=== PATIENT | male | born 1960 | race Caucasian/White ===

== ENCOUNTER 2018-11-16 10:12 | Day surgery (SDC) | payer OTHER, SELFPAY ==
[2018-11-16 10:54] VITALS: BP 157/67; PULSE 73; RESP 16; TEMP 37.2; O2SAT 100; BMI 48.8
[2018-11-16] MEDS: Bupivacaine 0.25% 30 ML Vial (10:56)
[2018-11-16] MEDS: MethylPREDNISolone Acetate 80 MG/ML Vial (10:56)
[2018-11-16 11:31] LABS: Bedside Glucose 148 mg/dL (70-110)
--- NOTE | 2018-11-16 11:50 | RAD_ITS ---
PROCEDURE: Caudal block. DATE OF EXAMINATION: November 16, 2018. INDICATION: Male, 58 years old. Chronic low back pain. FLUOROSCOPY TIME (if supplied): (0:09) minutes/seconds. 2 coned down intraoperative views were obtained. Intraoperative imaging provided for caudal block. RAD/Fluor Guidance for Spine Inj IMPRESSION: Intraoperative imaging provided for caudal block. Electronically Signed: Lloyd De Leon MD at 10:16 EST Tel [phone], Service support ,
[2018-11-16 12:02] VITALS: BP 142/70; BP 156/67; PULSE 89; RESP 16; TEMP 36.3; O2SAT 99
[2018-11-16 12:05] VITALS: BP 151/2; BP 156/67; PULSE 83; RESP 16; O2SAT 99
[2018-11-16 12:10] VITALS: BP 144/64; BP 156/67; PULSE 82; RESP 16; O2SAT 98
[2018-11-16 12:16] VITALS: BP 130/59; BP 156/67; PULSE 80; RESP 16; TEMP 36.3; O2SAT 98
[2018-11-16 12:29] VITALS: BP 156/67
--- NOTE | 2018-11-16 12:39 | PCM.OPRPT ---
Problem List (1) Degeneration of intervertebral disc of lumbosacral region Status: Chronic (2) Radiculopathy of lumbosacral region Status: Chronic Report of Operation Date of Procedure: 11/16/18 Pre-Operative Diagnosis: Lumbosacral radiculopathy, lumbosacral degenerative disc disease Post-Operative Diagnosis: Lumbosacral radiculopathy, lumbosacral degenerative disc disease Surgery/Procedure Performed:: Diagnostic/therapeutic caudal epidural steroid injection Description of Surgical Findings:: PROCEDURE: Diagnostic/therapeutic caudal epidural steroid injection PREOPERATIVE DIAGNOSIS: Lumbosacral radiculopathy, lumbosacral degenerative disc disease POSTOPERATIVE DIAGNOSIS: Lumbosacral radiculopathy, lumbosacral degenerative disc disease ANESTHESIA: MAC COMPLICATIONS: None BLOOD LOSS: Minimal PROCEDURE IN DETAIL: History and physical today was reviewed. Risks and benefits of the procedure were explained. The patient understood, agreed to our procedure, and informed consent was obtained. IV inserted per routine protocol. The patient was taken to the operating room, placed in a prone position with a pillow positioned underneath the abdomen. The lower back and tailbone area was prepped and draped in a sterile fashion using iodine ?3 under fluoroscopy guidance on the lateral view the caudal space was identified the skin and subcutaneous tissue and size approximately 3 cc of 1% lidocaine using a 25-gauge regular needle under direct visualization fluoroscopy using the lateral approach using a 22-gauge 3-1/2 inch spinal needle the needle was advanced via the skin through the sacral hiatus, tip of the needle passed through the sacrococcygeal ligament advanced approximately S4 area after negative aspiration for blood or CSF a total of 3 cc of contrast were injected to confirm correct placement of the needle as well as cephalad spread the spread was followed to approximately L5 area after confirmation AP as well as lateral view repeated negative aspiration a total of 15 cc of preservative-free 0.125% Marcaine with 80 mg of Depo-Medrol was injected easily. The needles were then removed intact. The patient experienced no signs or symptoms intrathecal, intravascular injection. The patient experienced no paraesthesia. The procedure was completed without any apparent difficult, any complication. The patient appeared to tolerate well. ASSESSMENT AND PLAN: This is a 58-year-old male with lumbosacral radiculopathy, lumbosacral degenerative disc disease status post diagnostic/therapeutic caudal epidural steroid injection. The patient will continue his current medications. The patient will follow in approximately 2 weeks for possible repeat of the procedure if indicated.
--- OUTSIDE RECORDS SUMMARY | 2019-02-17 23:07 | XMS RPT_ITS ---
:1960 Author Organization OHIP Care Team Providers Name Role Phone Erwin Wisdom Attending Unavailable Erwin Wisdom Referring Unavailable Tourtomeka, Ceferino Primary Care Unavailable Erwin Wisdom Attending Unavailable Erwin Wisdom Referring Unavailable Tourlas, Ceferino Primary Care Unavailable Derek Hudson Attending Unavailable VorDerek otero Primary Care Unavailable Derek Hudson Admitting Unavailable Tourlas, Moises Attending Unavailable Tourlas, Moises Primary Care Unavailable Tourlas, Moises Attending Unavailable Tourlas, Moises Admitting Unavailable Tourlas, Moises Primary Care Unavailable Tourlas, Moises Attending Unavailable Tourlas, Moises Primary Care Unavailable Tourlas, Moises Admitting Unavailable Tourlas, Moises Attending Unavailable Tourlas, Moises Primary Care Unavailable Ry Hodge Attending Unavailable Tourlas, Moises Referring Unavailable Tourlas, Moises Primary Care Unavailable Ry Hodge R Admitting Unavailable Tourlas, Moises Attending Unavailable Tourlas, Moises Primary Care Unavailable Tourlas, Moises Admitting Unavailable Tourlas, Moises Admitting Unavailable Tourlas, Moises Attending Unavailable Tourlas, Moises Primary Care Unavailable Tourlas, Moises Admitting Unavailable Tourlas, Moises Attending Unavailable Tourlas, Moises Primary Care Unavailable Tourlas, Moises Admitting Unavailable Tourlas, Moises Attending Unavailable Tourlas, Moises Primary Care Unavailable Moises Mauriico Attending Unavailable Hang, Moises Primary Care Unavailable Edward Wisdom Admitting Unavailable Edward Wisdom Attending Unavailable Hang, Moises Primary Care Unavailable PROBLEMS PROBLEMS DATE TYPE CONDITION / CODE ATTENDING STATUS SOURCE 11/23/2018 Unknown M51.17 - Artis Active Salvatore Intervertebral disc [facility] radiculopathy, Repository lumbosacral region / M51.17(ICD-10) PROCEDURES PROCEDURES No Procedure Records FoundRESULTS RESULTS OPERATIVE REPORT Observed: 12/21/2018 Status: F Source: [place] 10:38 AM [facility] Medical Records Department [address] [place] [address] Operative Report 12/21/18 1037 MR#: [id number] Acct: [id number] Name: CHERRI BLACK Rep #: [id number] : 1960 58 From: Erwin Wisdom MD PCP: Moises Mauricio MD Status: [facility] Y Location: [facility] Problem List (1) Spondylosis of lumbosacral region without myelopathy or radiculopathy Status: Chronic (2) Degeneration of intervertebral disc of lumbosacral region Status: Chronic Report of Operation Date of Procedure: 12/21/18 Pre-Operative Diagnosis: Lumbosacral spondylosis, lumbosacral degenerative disc disease, lumbar facet arthropathy Post-Operative Diagnosis: Lumbosacral spondylosis, lumbosacral degenerative disc disease, lumbar facet arthropathy Surgery/Procedure Performed:: Right-sided lumbar facet steroid injection L3, L4, L5, S1 Description of Surgical Findings:: PROCEDURE: Right-sided lumbar facet steroid injection L3, L4, L5, S1 PREOPERATIVE DIAGNOSIS: Lumbosacral spondylosis, lumbosacral degenerative disc disease, and lumbar facet arthropathy POSTOPERATIVE DIAGNOSIS: Lumbosacral spondylosis, lumbosacral degenerative disc disease, and lumbar facet arthropathy ANESTHESIA: MAC COMPLICATIONS: None BLOOD LOSS: Minimal PROCEDURE IN DETAIL: History and physical today was reviewed. Risks and benefits of the procedure were explained. The patient understood, agreed to our procedure, and informed consent was obtained. IV inserted per routine protocol. The patient was taken to the operating room, placed in a prone position with a pillow positioned underneath the abdomen. The right side of his lower back was prepped and draped in a sterile fashion using iodine x3. Under fluoroscopy guidance, on AP view, L3 through S1 vertebral bodies were visualized. Skin and subcutaneous tissues were anesthetized with approximately 5 mL of 1% lidocaine using a 25-gauge regular needle. Under direct visualization with fluoroscopy at approximately 25-degree angle, starting on the right L3, ending on the right S1, passing through the L4-L5 using a 22-gauge 5 inch spinal needle, the needle was advanced via the skin. The tip of the needle was maneuvered and directed towards the superior and medial gutter of the transverse process at the vicinity of the medial branch. Once the tip of the needle was in contact with the bone, the needle pulled approximately 2 mm off the bone. After negative aspiration of blood with CSF and confirmation of AP as well as oblique view, a total of 8 mL of preservative-free 0.25% Marcaine with 80 mg of Depo-Medrol was injection in divided doses between those 4 levels. The needles were then removed intact. The patient experienced no signs or symptoms intrathecal, intravascular injection. The patient experienced no paraesthesia. The procedure was completed without any apparent difficult, any complication. The patient appeared to tolerate well. ASSESSMENT AND PLAN: This is a 58-year-old Male with lumbosacral spondylosis, lumbosacral degenerative disc disease, and lumbar facet arthropathy, status post right-sided lumbar facet steroid injection L3 through S1. The patient will continue his current medications. The patient will follow in approximately 2 weeks for reevaluation. 12/21/18 1038 <Electronically signed by Erwin Wisdom MD> Date Erwin Wisdom MD CC: Erwin Wisdom; Moises Mauricio MD Signed BEDSIDE GLUCOSE Collected: 12/21/2018 Status: F Source: [place] 7:32 AM [facility] TYPE CODE TESTS RESULT OUT OF REFERENCE UNITS RANGE LAB L501.080 70-110 mg/dL High BEDSIDE GLU 170 Result Comment: MANAGEMENT OF PATIENT CARE PER NURSING PROTOCOL Performed By: #### L501.080 #### [facility] Point of Care [address] [place] [address] LUMBAR SPINE 2 OR 3 Observed: 12/21/2018 Status: F Source: [place] VIEWS 1:11 AM [facility] Imaging Services [address] [place] [address] Lumbar Spine 2 or 3 Views MR#: [id number] Acct: [id number] Name: CHERRI BLACK Rep #: [id number] : 1960 M 58 From: Ej Correa PCP: Moises Mauricio MD Status: [facility] Study: Lumbar Spine 2 or 3 Views Date of Exam: 12/21/18 Exam# [id number] Ordering Dr: Erwin Wisdom MD STUDY: X-RAY - LUMBAR SPINE REASON FOR EXAM: Male, 58 years old. BLOCK FACET L3-S1 RIGHT. TECHNIQUE: 2 view(s) of the lumbar spine were obtained. COMPARISON: None FINDINGS: Fluoroscopic views were obtained for intraoperative localization. Please refer to intraoperative report. RAD/Lumbar Spine 2 or 3 Views IMPRESSION: Fluoroscopic views were obtained for intraoperative localization. Please refer to intraoperative report. Electronically Signed: Ej Correa MD at 11:11 EST Tel , Service support , CC: Erwin Wisdom; Moises Mauricio MD Inside Barrel Lathe Operator: Signed OPERATIVE REPORT Observed: 11/16/2018 Status: F Source: [place] 12:40 PM [facility] Medical Records Department [address] [place] [address] Operative Report 11/16/18 1239 MR#: [id number] Acct: [id number] Name: CHERRI BLACK Rep #: [id number] : 1960 58 From: Erwin Wisdom MD PCP: Moises Mauricio MD Status: [facility] Y Location: [facility] Problem List (1) Degeneration of intervertebral disc of lumbosacral region Status: Chronic (2) Radiculopathy of lumbosacral region Status: Chronic Report of Operation Date of Procedure: 11/16/18 Pre-Operative Diagnosis: Lumbosacral radiculopathy, lumbosacral degenerative disc disease Post-Operative Diagnosis: Lumbosacral radiculopathy, lumbosacral degenerative disc disease Surgery/Procedure Performed:: Diagnostic/therapeutic caudal epidural steroid injection Description of Surgical Findings:: PROCEDURE: Diagnostic/therapeutic caudal epidural steroid injection PREOPERATIVE DIAGNOSIS: Lumbosacral radiculopathy, lumbosacral degenerative disc disease POSTOPERATIVE DIAGNOSIS: Lumbosacral radiculopathy, lumbosacral degenerative disc disease ANESTHESIA: MAC COMPLICATIONS: None BLOOD LOSS: Minimal PROCEDURE IN DETAIL: History and physical today was reviewed. Risks and benefits of the procedure were explained. The patient understood, agreed to our procedure, and informed consent was obtained. IV inserted per routine protocol. The patient was taken to the operating room, placed in a prone position with a pillow positioned underneath the abdomen. The lower back and tailbone area was prepped and draped in a sterile fashion using iodine 3 under fluoroscopy guidance on the lateral view the caudal space was identified the skin and subcutaneous tissue and size approximately 3 cc of 1% lidocaine using a 25-gauge regular needle under direct visualization fluoroscopy using the lateral approach using a 22-gauge 3-1/2 inch spinal needle the needle was advanced via the skin through the sacral hiatus, tip of the needle passed through the sacrococcygeal ligament advanced approximately S4 area after negative aspiration for blood or CSF a total of 3 cc of contrast were injected to confirm correct placement of the needle as well as cephalad spread the spread was followed to approximately L5 area after confirmation AP as well as lateral view repeated negative aspiration a total of 15 cc of preservative-free 0.125% Marcaine with 80 mg of Depo-Medrol was injected easily. The needles were then removed intact. The patient experienced no signs or symptoms intrathecal, intravascular injection. The patient experienced no paraesthesia. The procedure was completed without any apparent difficult, any complication. The patient appeared to tolerate well. ASSESSMENT AND PLAN: This is a 58-year-old male with lumbosacral radiculopathy, lumbosacral degenerative disc disease status post diagnostic/therapeutic caudal epidural steroid injection. The patient will continue his current medications. The patient will follow in approximately 2 weeks for possible repeat of the procedure if indicated. 11/16/18 1240 <Electronically signed by Erwin Wisdom MD> Date Erwin Wisdom MD CC: Erwin Wisdom; Moises Mauricio MD Signed BEDSIDE GLUCOSE Collected: 11/16/2018 Status: F Source: [place] 11:02 AM [facility] TYPE CODE TESTS RESULT OUT OF REFERENCE UNITS RANGE LAB L501.080 70-110 mg/dL High BEDSIDE GLU 148 Result Comment: MANAGEMENT OF PATIENT CARE PER NURSING PROTOCOL Performed By: #### L501.080 #### [facility] Point of Care [address] [place] [address] FLUOR GUIDANCE FOR Observed: 11/16/2018 Status: F Source: [place] SPINE INJ 3:48 AM [facility] Imaging Services [address] [place] [address] Fluor Guidance for Spine Inj MR#: [id number] Acct: [id number] Name: CHERRI BLACK Paramjit Rep #: [id number] : 1960 M 58 From: Lloyd De Leon MD PCP: Moises Mauricio MD Status: [facility] Study: Fluor Guidance for Spine Inj Date of Exam: 11/16/18 Exam# [id number] Ordering Dr: Erwin Wisdom MD PROCEDURE: Caudal block. DATE OF EXAMINATION: November 16, 2018. INDICATION: Male, 58 years old. Chronic low back pain. FLUOROSCOPY TIME (if supplied): (0:09) minutes/seconds. 2 coned down intraoperative views were obtained. Intraoperative imaging provided for caudal block. RAD/Fluor Guidance for Spine Inj IMPRESSION: Intraoperative imaging provided for caudal block. Electronically Signed: Lloyd De Leon MD at 10:16 EST Tel [phone], Service support , CC: Erwin Wisdom; Moises Mauricio MD Inside Barrel Lathe Operator: Signed XR SPINE LUMBOSACRAL Observed: 11/03/2018 Status: F Source: [place] COMPLETE W/ BENDING 4:07 PM [facility] REPOSITORY Exam Date/Time: 11/03/2018 16:20 EST Reason for Exam: low back/hip pain Report STUDY: XR Spine Lumbosacral Complete w/ Bending; 11/03/2018 4:20 pm INDICATION: low back/hip pain. COMPARISON: 10/27/2012 ACCESSION NUMBER(S): [id number] ORDERING CLINICIAN: Edward Wisdom FINDINGS: 7 views of the lumbar spine including AP, lateral, lateral cone-down, lateral flexion and extension and bilateral oblique views were obtained. There is no acute fracture identified. The vertebral bodies are well aligned without evidence of subluxation. The disc spaces are well preserved throughout without significant degenerative changes. [id number] facet degenerative changes are seen throughout the lumbar spine. There is no evidence of pars interarticularis defect. No abnormal motion is seen on the flexion and extension views. IMPRESSION: 1. No evidence of acute fracture. FINAL REPORT Dictated: 11/05/2018 11:26 am Alejandro Bustillos MD Signed (Electronic Signature): 11/05/2018 11:26 am Signed by: Alejandro Bustillos MD Technologist: SUZAN TOMLIN Collected: 10/12/2018 Status: F Source: [place] 12:03 PM [facility] REPOSITORY TYPE CODE TESTS RESULT OUT OF RANGE REFERENCE UNITS LAB 31096026(L 10-20 mEq/L OINC) AGAP Normal 11 LAB 21121388(L 70-99 mg/dL OINC) High Glucose Lvl 152 LAB 19419275(L 6-23 mg/dL OINC) BUN Normal 21 LAB 7206695(LO 0.5-1.3 mg/dL INC) Normal Creatinine 0.9 LAB 93586163(L 5.4-30.0 ratio OINC) Normal BUN/Creat Ratio 23.3 LAB 15666621(L 8.6-10.3 mg/dL OINC) Calcium Normal Lvl 9.4 LAB 87176370(L 136-145 mEq/L OINC) Sodium Normal Lvl 139 LAB 65080577(L 3.5-5.3 mEq/L OINC) Normal Potassium Lvl 3.9 LAB 95943246(L 98-107 mEq/L OINC) Chloride Normal 103 LAB 29630850(L 21.0-32.0 mEq/L OINC) CO2 Normal 29.0 Performed By: #### [id number] #### [facility] [employer] [address] [place] [address] EGFR Collected: 10/12/2018 Status: F Source: [place] 12:03 PM [facility] REPOS[facility] Order Comment: Order added by Discern Expert. TYPE CODE TESTS RESULT OUT OF RANGE REFERENCE UNITS LAB 15574393(LO mL/min/1.73 INC) m2 Normal eGFR >60 LAB 81574730(LO mL/min/1.73 INC) m2 Normal eGFR AA >60 Performed By: #### [id number] #### [facility]ELY [employer] [address] [place], [place] [id number] CMP Collected: 08/27/2018 Status: F Source: [place] 2:26 PM [facility] REPOSITORY TYPE CODE TESTS RESULT OUT OF RANGE REFERENCE UNITS LAB 90643803(L 70-99 mg/dL OINC) High Glucose Lvl 134 LAB 78656063(L 7-18 mg/dL OINC) High BUN 21 LAB 0699733(LO 0.6-1.3 mg/dL INC) Normal Creatinine 0.9 LAB 49409491(L 8.4-10.2 mg/dL OINC) Calcium Normal Lvl 9.6 LAB 55166378(L 136-145 mEq/L OINC) Sodium Normal Lvl 142 LAB 86943855(L 3.5-5.1 mEq/L OINC) Normal Potassium Lvl 4.0 LAB 92819417(L 98-107 mEq/L OINC) Chloride Normal 102 LAB 14597452(L 24.0-30.0 mEq/L OINC) CO2 Normal 28.0 LAB 76178887(L 42-121 Int._Unit/ OINC) L Alk Phos Normal 60 LAB 72070938(L 0.2-1.0 mg/dL OINC) Bili Normal Total 0.6 LAB 45068060(L 3.2-5.0 G/DL OINC) Albumin Normal Lvl 4.3 LAB 90886533(L 6.4-8.3 G/DL OINC) Total Normal Protein 7.9 LAB 39871412(L 10-40 Int._Unit/ OINC) L ALT Normal 30 LAB 23273560(L 10-42 Int._Unit/ OINC) L AST Normal 25 LAB 51334512(L 5.4-30.0 ratio OINC) Normal BUN/Creat Ratio 23.3 LAB 89595263(L 2.0-4.0 G/DL OINC) Globulin Normal 3.6 LAB 16256604(L 1.1-1.9 ratio OINC) A/G Normal Ratio 1.2 Performed By: #### [id number] #### [facility]ARELY [employer] [facility] [place] [address] EGFR Collected: 08/27/2018 Status: F Source: [place] 2:26 PM [facility] REPOS[facility] Order Comment: Order added by Discern Expert. TYPE CODE TESTS RESULT OUT OF RANGE REFERENCE UNITS LAB 31048194(LO mL/min/1.73 INC) m2 Normal eGFR >60 LAB 01298772(LO mL/min/1.73 INC) m2 Normal eGFR AA >60 Performed By: #### [id number] #### [facility]ELY [employer] [address] [id number] CBC W/ AUTO DIFF Collected: 08/27/2018 Status: F Source: [place] 2:26 PM [facility] REPOSITORY TYPE CODE TESTS RESULT OUT OF RANGE REFERENCE UNITS LAB 17951526(L 3.6-11.0 E3/mcL OINC) Normal WBC 8.4 LAB 22113955(L 3.90-6.10 E6/mcL OINC) Normal RBC 4.80 LAB 60573218(L 13.5-18.0 G/DL OINC) Normal Hgb 13.8 LAB 43079732(L 42.0-52.0 % OINC) Low Hct 41.4 LAB 27743275(L 11.5-14.5 % OINC) High RDW 14.7 LAB 85225464(L 27.0-31.0 pg OINC) Normal MCH 28.7 LAB 76306797(L 33.0-37.0 G/DL OINC) Normal MCHC 33.4 LAB 23185297(L 78.0-100.0 fL OINC) Normal MCV 86.1 LAB 60973262(L 7.4-11.0 fL OINC) Normal MPV 8.4 LAB 02100394(L 130-400 E3/mcL OINC) Normal Platelet 296 Performed By: #### [id number] #### Y[facility]ELY [employer]rest[employer] [address] [place] [address] AUTO DIFF Collected: 08/27/2018 Status: F Source: [place] 2:26 PM [facility] REPOSIT[facility] Order Comment: Order Added by Discern Expert. TYPE CODE TESTS RESULT OUT OF RANGE REFERENCE UNITS LAB 02862642(L 37.0-75.0 % OINC) Normal Neutro Auto 66.1 LAB 23904926(L 20.0-55.0 % OINC) Normal Lymph Auto 23.5 LAB 28175309(L 0.0-10.0 % OINC) Normal Hocking Auto 7.9 LAB 43654197(L 0.0-11.0 % OINC) Normal Eos Auto 1.4 LAB 72126902(L 0.0-2.0 % OINC) Normal Basophil Auto 1.1 LAB 56081732(L 1.4-6.5 E3/mcL OINC) Normal Neutro 5.5 Absolute LAB 72700446(L 1.2-3.4 E3/mcL OINC) Normal Lymph Absolute 2.0 LAB 11014406(L 0.0-0.7 E3/mcL OINC) Normal [place]ocking Absolute 0.7 LAB 19733400(L 0.0-0.7 E3/mcL OINC) Normal Eos Absolute 0.1 LAB 04028599(L 0.0-0.2 E3/mcL OINC) Normal Basophil 0.1 Absolute Performed By: #### [id number] #### [facility] [employer] [address] [place] [address] HGBA1C Collected: 08/27/2018 Status: F Source: [place] 2:26 PM [facility] REPOSITORY TYPE CODE TESTS RESULT OUT OF RANGE REFERENCE UNITS LAB 000037470( 4.0-6.3 % LOINC) Normal Hemoglobin A1c 6.3 Performed By: #### [id number] #### YARELY Chemistry Manual Subsection [facility] [place] [address] U DRUG SCREEN Collected: 02/17/2018 Status: F Source: [place] 11:50 AM [facility] REPOSITORY TYPE CODE TESTS RESULT OUT OF RANGE REFERENCE UNITS LAB 36679871(LO ng/mL INC) Normal U Negative Amph Scr Result Comment: Results for medical use only. Confirmation of positive results will be done when requested. Specimens are kept for one week. LAB 72627513(LOINC) ng/mL U Normal Gege Scr Negative LAB 08793303(LOINC) ng/mL U Normal Benzodia Scr Negative LAB 03105021(LOINC) ng/mL U Normal Cannab Scr Negative LAB 47213476(LOINC) ng/mL U Normal Cocaine Scr Negative LAB 21098872(LOINC) ng/mL U Normal Opiate Scr Positive >300 LAB 70416318(LOINC) ng/mL U Normal PCP Scr Negative Performed By: #### [id number] #### [facility] [employer] [address] [place], [place] [address] UA COMPLETE Collected: 02/17/2018 Status: F Source: [place] 11:50 AM [facility] REPOSITORY TYPE CODE TESTS RESULT OUT OF RANGE REFERENCE UNITS LAB 13660880( Yellow LOINC) Normal UA Color Yellow LAB 29021232( Clear LOINC) UA Clarity Abnormal SltCloudy LAB 43517470( Negative LOINC) Normal UA Glucose Negative LAB 23212864( Negative LOINC) Normal UA Bili Negative LAB 34242127( Negative LOINC) Normal UA Ketones Negative LAB 51794637( 1.003-1.030 LOINC) Normal UA Spec Grav 1.021 LAB 79942217( 4.6-8.0 LOINC) Normal UA pH 7.0 LAB 58610169( Negative LOINC) Normal UA Protein Negative LAB 05135755( mg/dL LOINC) Normal UA Urobilinogen Negative LAB 47669150( Negative LOINC) Normal UA Nitrite Negative LAB 73032425( Negative LOINC) Normal UA Blood Negative LAB 41276166( Negative LOINC) Normal UA Leuk Est Negative LAB 80595364( 0-3 /HPF LOINC) Normal UA RBC 0-3 LAB 31050225( 0-5 /HPF LOINC) Normal UA WBC 0-5 LAB 77784867( Trace /LPF LOINC) UA Mucous Abnormal Trace LAB CD:521453 <=19 mg/dL 3971(LOIN High C) UA Ascorbic 20 Acid Performed By: #### [id number] #### YARELY Urinalysis Automated Subsection [address] [place] [address] PSA SCREEN Collected: 02/17/2018 Status: F Source: [place] 11:50 AM [facility] REPOSITORY TYPE CODE TESTS RESULT OUT OF RANGE REFERENCE UNITS LAB 33399486(LO ng/mL INC) Normal PSA 0.19 Result Comment: AGE-SPECIFIC REFERENCE RANGES FOR SERUM PSA REFERENCE RANGE NG/ML AGE ASIANS BLACKS WHITE 40-49 0- 2 0-2 0-2.5 50-59 0- 3 0-4 0-3.5 60-69 0- 4 0-4.5 0-4.5 70-79 0- 5 0-5.5 0-6.5 PSA INCREASES WITH AGE, RACE, AND EJACULATION WITHIN 48 HRS. [facility] VOL24,NO.2, , PG.339 Performed By: #### [id number] #### Y[facility]ELY [employer] [address] [place] [address] TSH Collected: 02/17/2018 Status: F Source: [place] 11:50 AM [facility] REPOSITORY TYPE CODE TESTS RESULT OUT OF RANGE REFERENCE UNITS LAB 65886020(LO 0.30-5.60 mIU/m INC) Normal TSH 0.94 Performed By: #### [id number] #### Y[facility]ELY [employer] [address] [id number] CMP Collected: 02/17/2018 Status: F Source: [place] 11:50 AM [facility] REPOSITORY TYPE CODE TESTS RESULT OUT OF RANGE REFERENCE UNITS LAB 81443939(L 70-99 mg/dL OINC) High Glucose Lvl 116 LAB 55300930(L 8.4-10.2 mg/dL OINC) Calcium Normal Lvl 9.4 LAB 26737534(L 136-145 mEq/L OINC) Sodium Normal Lvl 140 LAB 34200128(L 3.5-5.1 mEq/L OINC) Normal Potassium Lvl 4.3 LAB 28130429(L 98-107 mEq/L OINC) Chloride Normal 101 LAB 14097945(L 24.0-30.0 mEq/L OINC) CO2 Normal 29.5 LAB 26432091(L 7-18 mg/dL OINC) High BUN 25 LAB 6442922(LO 0.6-1.3 mg/dL INC) Normal Creatinine 0.9 LAB 98125622(L 42-121 Int._Unit/ OINC) L Alk Phos Normal 52 LAB 79967330(L 0.2-1.0 mg/dL OINC) Bili Normal Total 0.6 LAB 94370466(L 3.2-5.0 G/DL OINC) Albumin Normal Lvl 4.3 LAB 68593859(L 6.4-8.3 G/DL OINC) Total Normal Protein 7.9 LAB 88593850(L 10-40 Int._Unit/ OINC) L ALT Normal 39 LAB 81263135(L 10-42 Int._Unit/ OINC) L AST Normal 27 LAB 84153448(L 5.4-30.0 ratio OINC) Normal BUN/Creat Ratio 27.8 LAB 07953874(L 2.0-4.0 G/DL OINC) Globulin Normal 3.6 LAB 14579400(L 1.1-1.9 ratio OINC) A/G Normal Ratio 1.2 Performed By: #### [id number] #### [facility] [employer] [place] [address] EGFR Collected: 02/17/2018 Status: F Source: [place] 11:50 AM [facility] REPOSITORY Order Comment: Order added by Discern Expert. TYPE CODE TESTS RESULT OUT OF RANGE REFERENCE UNITS LAB 38691528(LO mL/min/1.73 INC) m2 Normal eGFR >60 LAB 19557252(LO mL/min/1.73 INC) m2 Normal eGFR AA >60 Performed By: #### [id number] #### Y[facility]ELY [employer] [address] [id number] LIPID PROFILE Collected: 02/17/2018 Status: F Source: [place] 11:50 AM [facility] REPOSITORY TYPE CODE TESTS RESULT OUT OF RANGE REFERENCE UNITS LAB 14001943(LO 50-200 mg/dL INC) High Chol 223 Result Comment: TOTAL CHOLEESTEROL: <200 NORMAL 200 - 239 BORDERLINE HIGH >240 HIGH LAB 68956345(LOINC) >=41 mg/dL Low HDL 37 LAB 45341996(LOINC) 0-130 mg/dL Normal LDL 112 Result Comment: <100 OPTIMAL 100-129 NEAR / ABOVE OPTIMAL 130-159 BORDERLINE HIGH 160-189 HIGH >190 VERY HIGH CALC LDL NOT VALID WHEN TRIGLYCERIDE IS >400 MG/DL LAB 52199702(LOINC) 35-150 mg/dL High Trig 370 Result Comment: <150 NORMAL 150-199 BORDERLINE HIGH 200-499 HIGH >500 VERY HIGH LAB 40408268(LOINC) Normal VLDL 74 Performed By: #### [id number] #### Y[facility]ELY [employer] [address] [place] [address] HGBA1C Collected: 02/17/2018 Status: F Source: [place] 11:50 AM [facility] REPOSITORY TYPE CODE TESTS RESULT OUT OF RANGE REFERENCE UNITS LAB 528841388( 4.0-6.3 % LOINC) Normal Hemoglobin A1c 6.1 Performed By: #### [id number] #### YARELY Chemistry Manual Subsection [facility] [place] [address] Observed: 02/17/2018 Status: F Source: [place] C URINE 11:50 AM [facility] REPOSITORY Final Report: Rare Normal skin lizbeth isolated Performed By: #### [id number] #### YARELY Microbiology Subsection [address] [place] [address] ALLERGIES ALLERGIES DATE TYPE / CODE NAME / CODE REACTION SEVERITY SOURCE 12/21/2018 Drug No Known Unknown Salvatore Allergy/416 Allergies/Q298542 Community 943114(SNOM 388(RXNORM) [facility] ED CT) Repository Drug/390187 No Known [facility] 003(SNOMED Allergies [facility] CT) System Repository Drug/319440 Vu he called in to [facility] 003(SNOMED state in [facility] CT) uncertain terms System that he did not Repository like it and take it off his med list. Drug/011300 No Known [facility] 003(SNOMED Medication [facility] CT) Allergies System Repository ENCOUNTERS ENCOUNTERS ADMIT/DISCHARGE ACCOUNT NUMBER ADMITTING ENCOUNTER LOCATION SOURCE CLASS 12/21/2018/ [id number] Ambulatory Salvatore [place] [facility] ding:SDCRoom Repository : [id number] 11/16/2018/ [id number] Ambulatory Salvatore [place] 018 [facility] ding:SDCRoom Repository : AC16 11/03/2018/ [id number] Edward Wisdom Ambulatory Rastafarian Rastafarian 018 [facility] ding:[facility] [employer] Repository 11/03/2018 [id number] Ambulatory [address] [place] [address] Repository 10/15/2018/ [id number] Ambulatory [address] ding:[employer] System rac Repository 10/12/2018/ [id number] [facility], Ambulatory [facility] 018 [facility] ding: CUPS System Repository 10/12/2018 [id number] Ambulatory 9863 [facility] Repository 09/02/2018/ [id number] [facility], Ambulatory [facility] 018 [facility] ding:[facility] [employer] Repository 09/02/2018 [id number] Ambulatory [address] [place] [address] Repository 08/27/2018/ [id number] [facility], Ambulatory Rastafarian Rastafarian 018 [facility] ding: CUPS System Repository 08/27/2018/ [id number] [place] [address] [place] [address] ding:[employer] System racRoom: Repository Room 2 08/27/2018 [id number] Ambulatory 9863 [facility] Repository 05/29/2018 [id number] Ambulatory [address] [place] [address] Repository 05/20/2018/ [id number] Ambulatory [address] ding:[employer] System racRoom: Repository Room 1 05/14/2018 [id number] Ry Hodge [facility] ding:[facility] Health ACM System Repository 03/30/2018/ [id number] [address] ding:AshFamP System rac Repository 02/17/2018/ [id number] [facility], [address] ding: Health BANEY System Repository 02/17/2018/ [id number] [place], [address] ding:[employer] System racRoom: Repository Room 2 12/29/2017/ [id number] Derek Hudson [address] ding:AshFamP System racRoom: Repository Room 1 PAYERS PAYERS ENCOUNTER GUARANTOR PAYER SUBSCRIBER SOURCE 12/21/2018 CHERRI R Primary CHERRI R Salvatore [id number] CR [facility] [address] [id number] [id number]: [phone]) MEDICAREPolicy Repository [phone] () Number: [id number] Date: [place], [place] [address]HX: 12/21/2018 Secondary NOT GIVENUNK Salvatore Insurance:SELF PAY [facility] Number: Effective Repository Date:2018-12-14 11/16/2018 CHERRI R Primary CHERRI R Salvatore [id number] CR Insurance:[facility]ALTH PLAN [facility]: [address] [id number] [address]Itp: [phone] SUSSEXPolicy Number: Repository [phone] () [id number] Date: [place], [place] [address]JK: 11/16/2018 Secondary NOT GIVENUNK Salvatore Insurance:SELF PAY [facility] Number: Effective Repository Date:2018-11-09 11/03/2018 CHERRI Primary Insurance:[facility]: Health Plan [facility]: [facility] SecureCare Medicare [id number] Repository [address] Number: [place] [id number]: [id number] [id number]: Date:Plan Name:[facility] (HP) (HP) 10/12/2018 [facility]: Insurance:MedicarePol HARLEYDOB: [facility] icy Number: [id number] Repository [facility] [id number] [address] [place] [address] Date:Plan Name:[address] [id number]: [id number]: (HP) (HP) 09/02/2018 [facility]: Insurance:MedicarePol HARLEYDOB: [facility] icy Number: [id number] Repository [facility] [address] [id number] [address] [place] [address] Date:Plan Name:[address] [id number]: [id number]: (HP) (HP) 08/27/2018 [facility]: Insurance:[address] [place] [address]: [facility] HEALTH PLAN [facility] [id number] [address] Number: [address] [id number]: Date:2018-05-20 [id number]: [id number] (HP) Name:CD:[id number].O. ()Tel: (000) [address], [place] [address] (WP) [phone]: 05/20/2018 CHERRI RAY Primary CHERRI RAY Rastafarian HARLEYDOB: Insurance:[address] THE HARLEYDOB: [facility]AN [facility] [id number] Number: [facility] [place] [id number]: Date:2018-02-17 - [id number]: 1612-01-36Gvli (HP) Name:CD:[id number].O. ()Tel: (000) [address], [place] [address] (WP) [phone]: 05/14/2018 CHERRI RAY Primary CHERRI RAY Rastafarian HARLEYDOB: Insurance:MEDICARE HARLEYDOB: [facility] [id number] Number: Effective [address] [place] [address] Date:2018-03-24 - [place] [id number]: [id number] [id number]: Name:CD:[id number] () MAIN STREETCLAIMS: (HP)Tel: (000) [facility] 000-0000 () ESTRELLA Krishnamurthy [address]WS: 03/30/2018 CHERRI RAY Primary CHERRI RAY Rastafarian HARLEYDOB: Insurance:1500 [facility]: [facility] [id number] Number: [place] [id number]: Date:2017-12-29 - [id number]: [id number] (HP) Name:CD:[id number].O. ()Tel: (000) [address], [place] [address] (WP) [phone]: 02/17/2018 CHERRI RAY Primary CHERRI RAY Rastafarian HARLEYDOB: Insurance:MEDICARE [facility]: [facility] [id number] Number: Effective [address] [place] [address] Date:2018-02-[address] [place] [id number]: [id number] [id number]: Name:CD:[id number] () ROBIN CABRERAVeterans Affairs Medical Centernathanael, ()Tel: (000) [place] [address]LW: (WP) [phone] 02/17/2018 CHERRI RAY Primary CHERRI RAY Rastafarian HARLEYDOB: Insurance:1500 [facility]: [facility] [id number] Number: [place] [id number]: Date:2018-02-11 [id number]: [id number] (HP) Name:CD:[id number].OAlexei ()Tel: (000) [address] [place] [address] (WP) [phone]: 12/29/2017 CHERRI RAY Primary CHERRI RAY Rastafarian HARLEYDOB: Insurance:1500 [facility] [id number] Number: [place] [id number]: Date:2017-12-29 - [id number]: [id number] () Name:CD:[id number].O. (HP)Tel: (398) [address], [place] [address] (UD) [phone]:
== END 2018-11-16 12:29 | disposition home or self-care (01) ==
LOC: SDC 10:14 → AC 10:40
PROVIDERS: Family Provider Family Medicine; PCP Family Medicine; Referring Provider Anesthesiology Pain Medicine; Visit Provider Anesthesiology Pain Medicine
PROC: 3E0S3BZ Introduction of Anesthetic Agent into Epidural Space, Percutaneous Approach (ICD-10-PCS; CPT 62282; principal; 2018-11-16 11:45)
DX: M51.17 Intervertebral disc disorders with radiculopathy, lumbosacral region (principal); N40.0 Benign prostatic hyperplasia without lower urinary tract symptoms; E11.9 Type 2 diabetes mellitus without complications; G47.33 Obstructive sleep apnea (adult) (pediatric); I10 Essential (primary) hypertension; K21.9 Gastro-esophageal reflux disease without esophagitis; E78.00 Pure hypercholesterolemia, unspecified; Z87.442 Personal history of urinary calculi; Z87.891 Personal history of nicotine dependence; Z79.84 Long term (current) use of oral hypoglycemic drugs; Z79.82 Long term (current) use of aspirin; Z79.891 Long term (current) use of opiate analgesic; Z79.899 Other long term (current) drug therapy
CPT/HCPCS: 01992; 62323; 64520; 64483; 77003; 82962; J7120; J3490

== ENCOUNTER 2018-12-21 07:00 | Day surgery (SDC) | payer MEDICARE, SELFPAY ==
[2018-12-21 07:25] VITALS: BP 142/84; PULSE 84; RESP 16; TEMP 36.8; O2SAT 98; BMI 49.4
[2018-12-21 07:51] LABS: Bedside Glucose 170 mg/dL (70-110)
--- NOTE | 2018-12-21 08:20 | RAD_ITS ---
STUDY: X-RAY - LUMBAR SPINE REASON FOR EXAM: Male, 58 years old. BLOCK FACET L3-S1 RIGHT. TECHNIQUE: 2 view(s) of the lumbar spine were obtained. COMPARISON: None FINDINGS: Fluoroscopic views were obtained for intraoperative localization. Please refer to intraoperative report. RAD/Lumbar Spine 2 or 3 Views IMPRESSION: Fluoroscopic views were obtained for intraoperative localization. Please refer to intraoperative report. Electronically Signed: Ej Correa MD at 11:11 EST Tel , Service support ,
[2018-12-21] MEDS: Bupivacaine 0.25% 30 ML Vial (08:46)
[2018-12-21] MEDS: MethylPREDNISolone Acetate 80 MG/ML Vial (08:46)
[2018-12-21 08:55] VITALS: BP 131/86; BP 142/84; PULSE 70; RESP 18; TEMP 36.5; O2SAT 97
[2018-12-21 09:00] VITALS: BP 138/89; BP 142/84; PULSE 74; RESP 18; O2SAT 96
[2018-12-21 09:05] VITALS: BP 128/80; BP 142/84; PULSE 73; RESP 18; O2SAT 98
[2018-12-21 09:10] VITALS: BP 137/71; BP 142/84; PULSE 72; RESP 18; TEMP 36.9; O2SAT 97
[2018-12-21 09:21] VITALS: BP 142/84
--- NOTE | 2018-12-21 10:38 | OP.PCM_ITS ---
Problem List (1) Spondylosis of lumbosacral region without myelopathy or radiculopathy Status: Chronic (2) Degeneration of intervertebral disc of lumbosacral region Status: Chronic Report of Operation Date of Procedure: 12/21/18 Pre-Operative Diagnosis: Lumbosacral spondylosis, lumbosacral degenerative disc disease, lumbar facet arthropathy Post-Operative Diagnosis: Lumbosacral spondylosis, lumbosacral degenerative disc disease, lumbar facet arthropathy Surgery/Procedure Performed:: Right-sided lumbar facet steroid injection L3, L4, L5, S1 Description of Surgical Findings:: PROCEDURE: Right-sided lumbar facet steroid injection L3, L4, L5, S1 PREOPERATIVE DIAGNOSIS: Lumbosacral spondylosis, lumbosacral degenerative disc disease, and lumbar facet arthropathy POSTOPERATIVE DIAGNOSIS: Lumbosacral spondylosis, lumbosacral degenerative disc disease, and lumbar facet arthropathy ANESTHESIA: MAC COMPLICATIONS: None BLOOD LOSS: Minimal PROCEDURE IN DETAIL: History and physical today was reviewed. Risks and benefits of the procedure were explained. The patient understood, agreed to our procedure, and informed consent was obtained. IV inserted per routine protocol. The patient was taken to the operating room, placed in a prone position with a pillow positioned underneath the abdomen. The right side of his lower back was prepped and draped in a sterile fashion using iodine x3. Under fluoroscopy guidance, on AP view, L3 through S1 vertebral bodies were visualized. Skin and subcutaneous tissues were anesthetized with approximately 5 mL of 1% lidocaine using a 25-gauge regular needle. Under direct visualization with fluoroscopy at approximately 25-degree angle, starting on the right L3, ending on the right S1, passing throu gh the L4-L5 using a 22-gauge 5 inch spinal needle, the needle was advanced via the skin. The tip of the needle was maneuvered and directed towards the superior and medial gutter of the transverse process at the vicinity of the medial branch. Once the tip of the needle was in contact with the bone, the needle pulled approximately 2 mm off the bone. After negative aspiration of blood with CSF and confirmation of AP as well as oblique view, a total of 8 mL of preservative-free 0.25% Marcaine with 80 mg of Depo- Medrol was injection in divided doses between those 4 levels. The needles were then removed intact. The patient experienced no signs or symptoms intrathecal, intravascular injection. The patient experienced no paraesthesia. The procedure was completed without any apparent difficult, any complication. The patient appeared to tolerate well. ASSESSMENT AND PLAN: This is a 58-year-old Male with lumbosacral spondylosis, lumbosacral degenerative disc disease, and lumbar facet arthropathy, status post right-sided lumbar facet steroid injection L3 through S1. The patient will continue his current medications. The patient will follow in approximately 2 weeks for reevaluation.
--- OUTSIDE RECORDS SUMMARY | 2019-02-22 14:33 | XMS RPT_ITS ---
[...] Attending Unavailable Tourlas, Moises Primary Care Unavailable Hang, Moises Attending Unavailable Hang, Moises Primary Care Unavailable Hang, Moises Primary Care Unavailable Edward Wisdom Attending Unavailable Edward Wisdom Admitting Unavailable PROBLEMS PROBLEMS DATE TYPE CONDITION / CODE ATTENDING STATUS SOURCE 11/23/2018 Unknown M51.17 - Say Wisdom Intervertebral disc [facility] radiculopathy, Repository lumbosacral region / M51.17(ICD-10) PROCEDURES PROCEDURES No Procedure Records FoundRESULTS RESULTS OPERATIVE REPORT Observed: 12/21/2018 Status: F Source: [place] 10:38 AM [facility] REPOSITORY [facility] Medical Records Department [address] [place] [address] Operative Report 12/21/18 1037 MR#: [id number] Acct: [id number] Name: CHERRI BLACK Rep #: [id number] : 1960 58 From: Erwin Wisdom MD PCP: Moises Mauricio MD Status: [facility] Y Location: [facility] Problem List (1) Spondylosis of lumbosacral region [...] Source: [place] 7:32 AM [facility] REPOSITORY TYPE CODE TESTS RESULT OUT OF REFERENCE UNITS RANGE LAB L501.080 70-110 mg/dL High BEDSIDE GLU 170 Result Comment: MANAGEMENT OF PATIENT CARE PER NURSING PROTOCOL Performed By: #### L501.080 #### [facility] Point of Care [address] [place] [address] LUMBAR SPINE 2 OR 3 Observed: 12/21/2018 Status: F Source: [place] VIEWS 1:11 AM [facility] REPOSITORY [facility] Imaging Services [address] [place] [address] Lumbar Spine 2 or 3 Views MR#: [id number] Acct: [id number] Name: CHERRI BLACK Rep #: [id number] : 1960 M 58 From: Ej Correa PCP: Moises Mauricio MD Status: [facility] Study: Lumbar Spine 2 or 3 Views Date of Exam: 12/21/18 Exam# [id number] Ordering Dr: Erwin Wisdom MD STUDY: X-RAY [...] , CC: Erwin Wisdom; Moises Mauricio MD Prep Person: Signed OPERATIVE REPORT Observed: 11/16/2018 Status: F Source: [place] 12:40 PM [facility] REPOSITORY [facility] Medical Records Department [address] [place] [address] Operative Report 11/16/18 1239 MR#: [id number] Acct: [id number] Name: CHERRI BLACK Rep #: [id number] : 1960 58 From: Erwin Wisdom MD PCP: Moises Mauricio MD Status: DEP [facility] Y Location: [facility] Problem List (1) Degeneration of intervertebral disc [...] BEDSIDE GLUCOSE Collected: 11/16/2018 Status: F Source: [place] 11:02 AM [facility] REPOSITORY TYPE CODE TESTS RESULT OUT OF REFERENCE UNITS RANGE LAB L501.080 70-110 mg/dL High BEDSIDE GLU 148 Result Comment: MANAGEMENT OF PATIENT CARE PER NURSING PROTOCOL Performed By: #### L501.080 #### [facility] Point of Care [address] [place] [address] FLUOR GUIDANCE FOR Observed: 11/16/2018 Status: F Source: [place] SPINE INJ 3:48 AM [facility] REPOSITORY [facility] Imaging Services [address] [place] [address] Fluor Guidance for Spine Inj MR#: [id number] Acct: [id number] Name: CHERRI BLACK Paramjit Rep #: [id number] : 1960 M 58 From: Lloyd De Leon MD PCP: Moises Mauricio MD Status: [facility] Study: Fluor Guidance for Spine Inj Date of Exam: 11/16/18 Exam# [id number] Ordering Dr: Erwin Wisdom MD PROCEDURE: Caudal [...] De Leon MD at 10:16 EST Tel [phone], Service support , CC: Erwin Wisdom; Moises Mauricio MD Prep Person: Signed XR SPINE LUMBOSACRAL Observed: 11/03/2018 Status: F Source: [place] COMPLETE W/ BENDING 4:07 PM [facility] REPOSITORY Exam Date/Time: 11/03/2018 16:20 EST Reason for Exam: low back/hip pain Report STUDY: XR Spine Lumbosacral Complete w/ Bending; 11/03/2018 4:20 pm INDICATION: low back/hip pain. COMPARISON: 10/27/2012 ACCESSION NUMBER(S): [id number] ORDERING CLINICIAN: Edward Wisdom FINDINGS: 7 views of the lumbar spine including AP, lateral, lateral cone-down, lateral flexion and extension and bilateral oblique views were obtained. There is no acute fracture identified. The vertebral bodies are well aligned without evidence of subluxation. The disc spaces are well preserved throughout without significant degenerative changes. Icek-be-jpmklkth facet degenerative changes are seen throughout the lumbar spine. There is no evidence of pars interarticularis defect. No abnormal motion is seen on the flexion and extension views. IMPRESSION: 1. No evidence of acute fracture. FINAL REPORT Dictated: 11/05/2018 11:26 am Alejandro Bustillos MD Signed (Electronic Signature): 11/05/2018 11:26 am Signed by: Alejandro Bustillos MD Technologist: SUZAN TOMLIN Collected: 10/12/2018 Status: F Source: [place] 12:03 PM [facility] REPOSITORY TYPE CODE TESTS RESULT OUT OF RANGE REFERENCE UNITS LAB 20815616(L 10-20 mEq/L OINC) AGAP Normal 11 LAB 98544260(L 70-99 mg/dL OINC) High Glucose Lvl 152 LAB 29519871(L 6-23 mg/dL OINC) BUN Normal 21 LAB 9633242(LO 0.5-1.3 mg/dL INC) Normal Creatinine 0.9 LAB 73092446(L 5.4-30.0 ratio OINC) Normal BUN/Creat Ratio 23.3 LAB 64309249(L 8.6-10.3 mg/dL OINC) Calcium Normal Lvl 9.4 LAB 94549990(L 136-145 mEq/L OINC) Sodium Normal Lvl 139 LAB 48264733(L 3.5-5.3 mEq/L OINC) Normal Potassium Lvl 3.9 LAB 25353480(L 98-107 mEq/L OINC) Chloride Normal 103 LAB 69547140(L 21.0-32.0 mEq/L OINC) CO2 Normal 29.0 Performed By: #### [id number] #### YARELY [employer] [address] [place] [address] EGFR Collected: 10/12/2018 Status: F Source: [place] 12:03 PM [facility] REPOSITORY Order Comment: Order added by Discern Expert. TYPE CODE TESTS RESULT OUT OF RANGE REFERENCE UNITS LAB 87224777(LO mL/min/1.73 INC) m2 Normal eGFR >60 LAB 35679963(LO mL/min/1.73 INC) m2 Normal eGFR AA >60 Performed By: #### [id number] #### YARELY [employer] [address] [place], [place] [address] CMP Collected: 08/27/2018 Status: F Source: [place] 2:[address] [facility] REPOSITORY TYPE CODE TESTS RESULT OUT OF RANGE REFERENCE UNITS LAB 78823287(L 70-99 mg/dL OINC) High Glucose Lvl 134 LAB 42715339(L 7-18 mg/dL OINC) High BUN 21 LAB 6203655(LO 0.6-1.3 mg/dL INC) Normal Creatinine 0.9 LAB 80897449(L 8.4-10.2 mg/dL OINC) Calcium Normal Lvl 9.6 LAB 36698094(L 136-145 mEq/L OINC) Sodium Normal Lvl 142 LAB 22322976(L 3.5-5.1 mEq/L OINC) Normal Potassium Lvl 4.0 LAB 93063991(L 98-107 mEq/L OINC) Chloride Normal 102 LAB 03193724(L 24.0-30.0 mEq/L OINC) CO2 Normal 28.0 LAB 09174609(L 42-121 Int._Unit/ OINC) L Alk Phos Normal 60 LAB 71298479(L 0.2-1.0 mg/dL OINC) Bili Normal Total 0.6 LAB 01104729(L 3.2-5.0 G/DL OINC) Albumin Normal Lvl 4.3 LAB 91347603(L 6.4-8.3 G/DL OINC) Total Normal Protein 7.9 LAB 61751642(L 10-40 Int._Unit/ OINC) L ALT Normal 30 LAB 62026214(L 10-42 Int._Unit/ OINC) L AST Normal 25 LAB 82941002(L 5.4-30.0 ratio OINC) Normal BUN/Creat Ratio 23.3 LAB 42177275(L 2.0-4.0 G/DL OINC) Globulin Normal 3.6 LAB 01273850(L 1.1-1.9 ratio OINC) A/G Normal Ratio 1.2 Performed By: #### [id number] #### YARELY [employer] [facility] [place] [address] EGFR Collected: 08/27/2018 Status: F Source: [place] 2:26 PM [facility] REPOSITORY Order Comment: Order added by Discern Expert. TYPE CODE TESTS RESULT OUT OF RANGE REFERENCE UNITS LAB 80833392(LO mL/min/1.73 INC) m2 Normal eGFR >60 LAB 48164989(LO mL/min/1.73 INC) m2 Normal eGFR AA >60 Performed By: #### [id number] #### YARELY [employer] [address] [address] CBC W/ AUTO DIFF Collected: 08/27/2018 Status: F Source: [place] 2:[address] [facility] REPOSITORY TYPE CODE TESTS RESULT OUT OF RANGE REFERENCE UNITS LAB 94471577(L 3.6-11.0 E3/mcL OINC) Normal WBC 8.4 LAB 71531192(L 3.90-6.10 E6/mcL OINC) Normal RBC 4.80 LAB 99892867(L 13.5-18.0 G/DL OINC) Normal Hgb 13.8 LAB 08508135(L 42.0-52.0 % OINC) Low Hct 41.4 LAB 92657645(L 11.5-14.5 % OINC) High RDW 14.7 LAB 77427114(L 27.0-31.0 pg OINC) Normal MCH 28.7 LAB 19270043(L 33.0-37.0 G/DL OINC) Normal MCHC 33.4 LAB 01606718(L 78.0-100.0 fL OINC) Normal MCV 86.1 LAB 02418742(L 7.4-11.0 fL OINC) Normal MPV 8.4 LAB 61308846(L 130-400 E3/mcL OINC) Normal Platelet 296 Performed By: #### [id number] #### YARELY Shrestha [address] [place] [address] AUTO DIFF Collected: 08/27/2018 Status: F Source: [place] 2:26 PM [facility] REPOSITORY Order Comment: Order Added by Discern Expert. TYPE CODE TESTS RESULT OUT OF RANGE REFERENCE UNITS LAB 86139545(L 37.0-75.0 % OINC) Normal Neutro Auto 66.1 LAB 13908271(L 20.0-55.0 % OINC) Normal Lymph Auto 23.5 LAB 12929892(L 0.0-10.0 % OINC) Normal [place] Auto 7.9 LAB 61043098(L 0.0-11.0 % OINC) Normal Eos Auto 1.4 LAB 92928131(L 0.0-2.0 % OINC) Normal Basophil Auto 1.1 LAB 70332871(L 1.4-6.5 E3/mcL OINC) Normal Neutro 5.5 Absolute LAB 07083835(L 1.2-3.4 E3/mcL OINC) Normal Lymph Absolute 2.0 LAB 56207678(L 0.0-0.7 E3/mcL OINC) Normal [place] Absolute 0.7 LAB 57161905(L 0.0-0.7 E3/mcL OINC) Normal Eos Absolute 0.1 LAB 85876001(L 0.0-0.2 E3/mcL OINC) Normal Basophil 0.1 Absolute Performed By: #### [id number] #### YARELY MccrackenHemo [address] [place] [address] HGBA1C Collected: 08/27/2018 Status: F Source: [place] 2:26 PM [facility] REPOSITORY TYPE CODE TESTS RESULT OUT OF RANGE REFERENCE UNITS LAB 944092744( 4.0-6.3 % LOINC) Normal Hemoglobin A1c 6.3 Performed By: #### [id number] #### YARELY Chemistry Manual Subsection [facility] [place] [address] U DRUG SCREEN Collected: 02/17/2018 Status: F Source: [place] 11:50 AM [facility] REPOSITORY TYPE CODE TESTS RESULT OUT OF RANGE REFERENCE UNITS LAB 40403784(LO ng/mL INC) Normal U Negative Amph Scr Result Comment: Results for medical use only. Confirmation of positive results will be done when requested. Specimens are kept for one week. LAB 21166879(LOINC) ng/mL U Normal Gege Scr Negative LAB 00360650(LOINC) ng/mL U Normal Benzodia Scr Negative LAB 78101740(LOINC) ng/mL U Normal Cannab Scr Negative LAB 28634756(LOINC) ng/mL U Normal Cocaine Scr Negative LAB 17672979(LOINC) ng/mL U Normal Opiate Scr Positive >300 LAB 22762081(LOINC) ng/mL U Normal PCP Scr Negative Performed By: #### [id number] #### YARELY [employer] [address] [place], [place] [address] UA COMPLETE Collected: 02/17/2018 Status: F Source: [place] 11:50 AM [facility] REPOSITORY TYPE CODE TESTS RESULT OUT OF RANGE REFERENCE UNITS LAB 10654051( Yellow LOINC) Normal UA Color Yellow LAB 49362810( Clear LOINC) UA Clarity Abnormal SltCloudy LAB 12728449( Negative LOINC) Normal UA Glucose Negative LAB 42236547( Negative LOINC) Normal UA Bili Negative LAB 73015298( Negative LOINC) Normal UA Ketones Negative LAB 14073537( 1.003-1.030 LOINC) Normal UA Spec Grav 1.021 LAB 07238136( 4.6-8.0 LOINC) Normal UA pH 7.0 LAB 50875240( Negative LOINC) Normal UA Protein Negative LAB 08288541( mg/dL LOINC) Normal UA Urobilinogen Negative LAB 12795562( Negative LOINC) Normal UA Nitrite Negative LAB 72413725( Negative LOINC) Normal UA Blood Negative LAB 82701596( Negative LOINC) Normal UA Leuk Est Negative LAB 58957780( 0-3 /HPF LOINC) Normal UA RBC 0-3 LAB 91606387( 0-5 /HPF LOINC) Normal UA WBC 0-5 LAB 70289593( Trace /LPF LOINC) UA Mucous Abnormal Trace LAB CD:109015 <=19 mg/dL 3971(LOIN High C) UA Ascorbic 20 Acid Performed By: #### [id number] #### YARELY Urinalysis Automated Subsection [address] [place] [address] PSA SCREEN Collected: 02/17/2018 Status: F Source: [place] 11:50 AM [facility] REPOSITORY TYPE CODE TESTS RESULT OUT OF RANGE REFERENCE UNITS LAB 90382713(LO ng/mL INC) Normal PSA 0.19 Result Comment: AGE-SPECIFIC REFERENCE RANGES FOR SERUM PSA REFERENCE RANGE NG/ML AGE ASIANS BLACKS WHITE 40-49 0- 2 0-2 0-2.5 50-59 0- 3 0-4 0-3.5 60-69 0- 4 0-4.5 0-4.5 70-79 0- 5 0-5.5 0-6.5 PSA INCREASES WITH AGE, RACE, AND EJACULATION WITHIN 48 HRS. [facility] VOL24,NO.2, , PG.339 Performed By: #### [id number] #### YARELY [employer] [address] [place] [address] TSH Collected: 02/17/2018 Status: F Source: [place] 11:50 AM [facility] REPOSITORY TYPE CODE TESTS RESULT OUT OF RANGE REFERENCE UNITS LAB 53686136(LO 0.30-5.60 mIU/m INC) Normal TSH 0.94 Performed By: #### [id number] #### YARELY [employer] [address] [address] CMP Collected: 02/17/2018 Status: F Source: [place] 11:50 AM [facility] REPOSITORY TYPE CODE TESTS RESULT OUT OF RANGE REFERENCE UNITS LAB 15085623(L 70-99 mg/dL OINC) High Glucose Lvl 116 LAB 11527613(L 8.4-10.2 mg/dL OINC) Calcium Normal Lvl 9.4 LAB 67355522(L 136-145 mEq/L OINC) Sodium Normal Lvl 140 LAB 09304149(L 3.5-5.1 mEq/L OINC) Normal Potassium Lvl 4.3 LAB 65285777(L 98-107 mEq/L OINC) Chloride Normal 101 LAB 74218375(L 24.0-30.0 mEq/L OINC) CO2 Normal 29.5 LAB 14650208(L 7-18 mg/dL OINC) High BUN 25 LAB 6927846(LO 0.6-1.3 mg/dL INC) Normal Creatinine 0.9 LAB 37672840(L 42-121 Int._Unit/ OINC) L Alk Phos Normal 52 LAB 22580144(L 0.2-1.0 mg/dL OINC) Bili Normal Total 0.6 LAB 57580030(L 3.2-5.0 G/DL OINC) Albumin Normal Lvl 4.3 LAB 20178092(L 6.4-8.3 G/DL OINC) Total Normal Protein 7.9 LAB 11456030(L 10-40 Int._Unit/ OINC) L ALT Normal 39 LAB 82491111(L 10-42 Int._Unit/ OINC) L AST Normal 27 LAB 56577387(L 5.4-30.0 ratio OINC) Normal BUN/Creat Ratio 27.8 LAB 49253116(L 2.0-4.0 G/DL OINC) Globulin Normal 3.6 LAB 19139935(L 1.1-1.9 ratio OINC) A/G Normal Ratio 1.2 Performed By: #### [id number] #### YARELY [employer] [place] [address] EGFR Collected: 02/17/2018 Status: F Source: [place] 11:50 AM [facility] REPOSITORY Order Comment: Order added by Discern Expert. TYPE CODE TESTS RESULT OUT OF RANGE REFERENCE UNITS LAB 43863357(LO mL/min/1.73 INC) m2 Normal eGFR >60 LAB 58333004(LO mL/min/1.73 INC) m2 Normal eGFR AA >60 Performed By: #### [id number] #### YARELY [employer] [address] [address] LIPID PROFILE Collected: 02/17/2018 Status: F Source: [place] 11:[address] [facility] REPOSITORY TYPE CODE TESTS RESULT OUT OF RANGE REFERENCE UNITS LAB 91010070(LO 50-200 mg/dL INC) High Chol 223 Result Comment: TOTAL CHOLEESTEROL: <200 NORMAL 200 - 239 BORDERLINE HIGH >240 HIGH LAB 28651165(LOINC) >=41 mg/dL Low HDL 37 LAB 75733639(LOINC) 0-130 mg/dL Normal LDL 112 Result Comment: <100 OPTIMAL 100-129 NEAR / ABOVE OPTIMAL 130-159 BORDERLINE HIGH 160-189 HIGH >190 VERY HIGH CALC LDL NOT VALID WHEN TRIGLYCERIDE IS >400 MG/DL LAB 81325522(LOINC) 35-150 mg/dL High Trig 370 Result Comment: <150 NORMAL 150-199 BORDERLINE HIGH 200-499 HIGH >500 VERY HIGH LAB 50070702(LOINC) Normal VLDL 74 Performed By: #### [id number] #### YARELY [employer] [address] [place] [address] HGBA1C Collected: 02/17/2018 Status: F Source: [place] 11:50 AM [facility] REPOSITORY TYPE CODE TESTS RESULT OUT OF RANGE REFERENCE UNITS LAB 289024654( 4.0-6.3 % LOINC) Normal Hemoglobin A1c 6.1 Performed By: #### [id number] #### YARELY Chemistry Manual Subsection [facility] [place] [address] Observed: 02/17/2018 Status: F Source: [place] C URINE 11:50 AM [facility] REPOSITORY Final Report: Rare Normal skin lizbeth isolated Performed By: #### [id number] #### YARELY Microbiology Subsection [address] [place] [address] ALLERGIES ALLERGIES DATE TYPE / CODE NAME / CODE REACTION SEVERITY SOURCE 12/21/2018 Drug No Known Unknown Salvatore Allergy/416 Allergies/M763842 Community 977585(SNOM 388(RXNORM) [facility] ED CT) Repository Drug/278582 No Known Yazidism 003(SNOMED Allergies [facility] CT) System Repository Drug/164027 Vu he called in to Yazidism 003(SNOMED state in [facility] CT) uncertain terms System that he did not Repository like it and take it off his med list. Drug/143896 No Known Yazidism 003(SNOMED Medication [facility] CT) Allergies System Repository ENCOUNTERS ENCOUNTERS ADMIT/DISCHARGE ACCOUNT NUMBER ADMITTING ENCOUNTER LOCATION SOURCE CLASS 12/21/2018/ [id number] Ambulatory Salvatore [place] 019 [facility] ding:SDCRoom Repository : AC16 11/16/2018/ [id number] Ambulatory Salvatore [place] 018 [facility] ding:SDCRoom Repository : AC16 11/03/2018/ [id number] Edward Wisdom Ambulatory Yazidism Yazidism 018 [facility] ding:[facility] [employer] System Repository 11/03/2018 [id number] Ambulatory [address] [place] [address] Repository 10/15/2018/ [id number] Ambulatory [address] ding:[employer] System rac Repository 10/12/2018/ [id number] [facility], [facility]ulatory [facility] ding: [employer] System Repository 10/12/2018 [id number] Ambulatory 9[address] [facility] Repository 09/02/2018/ [id number] [facility], [facility] ding:[facility] [employer] System Repository 09/02/2018 [id number] Ambulatory [address] [place] [address] Repository 08/27/2018/ [id number] [facility], Ambulatory Yazidism Yazidism 018 [facility] ding: [employer] System Repository 08/27/2018/ [id number] Tourlas, [facility] [address] [place] [address] ding:[employer] System racRoom: Repository Room 2 08/27/2018 [id number] Ambulatory 9[address] [facility] Repository 05/29/2018 [id number] Ambulatory [address] [place] [address] Repository 05/20/2018/ [id number] Ambulatory [address] ding:[employer] System racRoom: Repository Room 1 05/14/2018 [id number] Ry [facility] ding:[facility] Health ACM System Repository 03/30/2018/ [id number] [address] ding:[employer] System rac Repository 02/17/2018/ [id number] [facility], [address] ding: Health BANEY System Repository 02/17/2018/ [id number] Tourlas, [address] ding:[employer] System racRoom: Repository Room 2 12/29/2017/ [id number] Derek Hudson [address] ding:Ash[employer] System racRoom: Repository Room 1 PAYERS PAYERS ENCOUNTER GUARANTOR PAYER SUBSCRIBER SOURCE 12/21/2018 CHERRI R Primary CHERRI R Salvatore [id number] CR [facility] [address] [id number] [id number]: [phone] MEDICAREPolicy Repository [phone] () Number: [id number] Date: [place], [place] [address]BO: 12/21/2018 Secondary NOT GIVENUNK Salvatore Insurance:SELF PAY [facility] Number: Effective Repository Date:2018-12-14 11/16/2018 CHERRI R Primary HCERRI R Salvatore [id number] CR Insurance:[facility]AN [facility]: [address] [id number] [address]Bad: (419) SHAMOKINPolicy Number: Repository [phone] () [id number] Date: [place], [place] [address]EK: 11/16/2018 Secondary NOT GIVENUNK Salvatore Insurance:SELF PAY [facility] Number: Effective Repository Date:2018-11-09 11/03/2018 CHERRI Primary Insurance:[facility]: Health Plan [facility]: [facility] SecureCare Medicare [id number] Repository [address] Number: [address], [place] [id number]: [id number]: Date:Plan Name:[facility] (HP) (HP) 10/12/2018 [facility]: Insurance:MedicarePol HARLEYDOB: [facility] icy Number: [id number] Repository [facility] [address] [id number] [address] [place] [address] Date:Plan Name:[address] [id number]: [id number]: (HP) (HP) 09/02/2018 [facility]: Insurance:MedicarePol HARLEYDOB: [facility] icy Number: [id number] Repository [facility] [address] [id number] [address] [place] [address] Date:Plan Name:[address] [id number]: [id number]: (HP) (HP) 08/27/2018 [facility]: Insurance:[address] [place] [address]: [facility] HEALTH PLAN [facility] [id number] [address] Number: [address] [id number]: Date:2018-05-20 [id number]: [id number] (HP) Name:CD:[id number].O. ()Tel: (000) [address], [place] [address] (WP) [phone]: 05/20/2018 CHERRI RAY Primary CHERRI RAY Yazidism HARLEYDOB: Insurance:1500 THE HARLEYDOB: [facility] HEALTH PLAN [facility] [id number] Number: [facility] [place] [id number]: Date:2018-02-17 - [id number]: [id number] (HP) Name:CD:[id number].O. ()Tel: (000) [address], [place] [address] (WP) [phone]: 05/14/2018 CHERRI RAY Primary CHERRI RAY Yazidism HARLEYDOB: Insurance:MEDICARE HARLEYDOB: [facility] [id number] Number: Effective [address] [place] [address] Date:2018-03-24 - [place] [id number]: [id number] [id number]: Name:CD:[id number] () MAIN STREETCLAIMS: (HP)Tel: (000) [facility] 000-0000 () ESTRELLA Krishnamurthy [address]VQ: 03/30/2018 CHERRI RAY Primary CHERRI RAY Yazidism HARLEYDOB: Insurance:1500 [facility]: [facility] HE[facility] PLAN [facility] [id number] Number: Effective [place], [place] [phone]: Date:2017-12-29 - [id number]: [id number] (HP) Name:CD:[id number].O. ()Tel: (000) [address], [place] 000[address] (WP) [phone]: 02/17/2018 CHERRI RAY Primary CHERRI RAY Yazidism HARLEYDOB: Insurance:MEDICARE [facility]: [facility] [id number] Number: Effective [address] [place] [address] Date:2018-02-[address] [place] [address] [id number]: [id number] [id number]: Name:CD:[id number] () ROBIN CABRERAFairmont Regional Medical Centernathanael, ()Tel: (000) [place] [address]UB: (WP) [phone] 02/17/2018 CHERRI RAY Primary CHERRI RAY Yazidism HARLEYDOB: Insurance:1500 [facility]: [facility] HEALTH PLAN [facility] [id number] Number: Effective [place] [id number]: Date:2018-02-11 [id number]: [id number] (HP) Name:CD:[id number].OAlexei ()Tel: (000) [address] [place] [address] (WP) [phone]: 12/29/2017 CHERRI RAY Primary CHERRI RAY Yazidism HARLEYDOB: Insurance:1500 [facility] HEALTH PLAN [facility] [id number] [address] Number: [place] [id number]: Date:2017-12-29 - [id number]: [id number] () Name:CD:[id number].O. (HP)Tel: (463) [address], [place] [address] (CN) [phone]:
== END 2018-12-21 09:34 | disposition home or self-care (01) ==
LOC: SDC 07:04 → AC 07:05
PROVIDERS: Family Provider Family Medicine; PCP Family Medicine; Referring Provider Anesthesiology Pain Medicine; Visit Provider Anesthesiology Pain Medicine
PROC: 3E0T3BZ Introduction of Anesthetic Agent into Peripheral Nerves and Plexi, Percutaneous Approach (ICD-10-PCS; CPT 64493; principal; 2018-12-21 08:15)
DX: M47.27 Other spondylosis with radiculopathy, lumbosacral region (principal); M51.17 Intervertebral disc disorders with radiculopathy, lumbosacral region; M47.812 Spondylosis without myelopathy or radiculopathy, cervical region; M50.30 Other cervical disc degeneration, unspecified cervical region; M48.02 Spinal stenosis, cervical region; E11.9 Type 2 diabetes mellitus without complications; G47.33 Obstructive sleep apnea (adult) (pediatric); I10 Essential (primary) hypertension; K21.9 Gastro-esophageal reflux disease without esophagitis; E78.00 Pure hypercholesterolemia, unspecified; Z87.442 Personal history of urinary calculi; Z87.891 Personal history of nicotine dependence; Z79.82 Long term (current) use of aspirin; Z79.84 Long term (current) use of oral hypoglycemic drugs; Z79.891 Long term (current) use of opiate analgesic; Z79.899 Other long term (current) drug therapy
CPT/HCPCS: 64493; 64494; 64495; 64483; 72100; 82962; J7120